=== PATIENT | male | born 1940 | race Caucasian/White ===

== ENCOUNTER 2016-05-04 08:07 | Day surgery (SDC) | payer MEDICARE ==
[~2016-05-04] VITALS: Ht 167.6 cm; Wt 75.0 kg
[~2016-05-04 08:07] MED LIST: ASPI-973 PO; CHOL10008 PO; FEXO1TAB4 PO; MULT-1073 PO; OMEP20CA11 PO; PYR50 PO; Sodium Chloride LOK Flush 10 mL Syringe IV PRN; TAMS0.4C29 PO; TIMO5DRO5 OP; TRAV5DRO OP; fentaNYL-PF 50 mCg/mL 2 mL Inj IVPUSH PRN
[2016-05-04 08:23] VITALS: BP 137/85; PULSE 78; RESP 16; O2SAT 100
[2016-05-04] MEDS ORDERED: LACT1CAP73 PO (08:27)
[2016-05-04] MEDS ORDERED: GABA-502 PO (08:27)
[2016-05-04] MEDS: 0.9% Sodium Chloride 1,000 ML IV SCH ×3 (08:36→09:10)
[2016-05-04 09:17] VITALS: BP 110/65; PULSE 67; RESP 16; O2SAT 93
[2016-05-04 09:26] VITALS: BP 101/62; PULSE 54; RESP 14; O2SAT 96
[2016-05-04 09:31] VITALS: BP 114/69; PULSE 73; RESP 14; O2SAT 97
--- NOTE | 2016-05-04 09:59 | ENDO ---
[address] [address] ENDOSCOPY PROCEDURE PATIENT: NAHOMY BUSTILLO : 1940 MR#: [id number] ADMIT: 05/04/2016 JOB ID: [id number] DATE OF SERVICE: 05/04/2016 TYPE OF OPERATION: 1. Esophagogastroduodenoscopy with biopsy. 2. Colonoscopy with biopsy. PREOPERATIVE DIAGNOSIS(ES): 1. Gastroesophageal reflux disease. 2. History of tubular adenoma polyps. POSTOPERATIVE DIAGNOSIS(ES): 1. Multiple gastric polyps. 2. Mild nonerosive gastritis. 3. Two ascending colon polyps, both measuring approximately 4 mm in diameter, removed by cold biopsy forceps. 4. Severe sigmoid diverticulosis. 5. Small internal hemorrhoids. ANESTHESIA: Fentanyl 150 mcg and Versed 5 mg IV administered. COMPLICATIONS: None. BLOOD LOSS: Minimal. DESCRIPTION OF PROCEDURE: After risks and benefits were explained to the patient, informed consent was obtained. After anesthesia administered, upper endoscope was then inserted into the mouth, intubating into the esophagus, stomach and second portion, and mucosa carefully examined. After procedure was done, the scope withdrawn and procedure terminated. A colonoscope was then inserted from rectum to cecum. Mucosa carefully examined. Prep of the patient was fair. After the procedure was done, the scope withdrawn and procedure terminated. FINDINGS: Upon inspection of the esophagus, the esophagus was normal without masses, ulcers, or lesions. Z-line located 40 cm from incisors. Upon entering stomach, there was mild nonerosive gastritis that was seen. There were no masses or ulcers seen. There was multiple gastric polyps seen in the body. Retroflexion was normal. Duodenal bulb, first and second portions were normal. Biopsies taken of the antrum and body of the stomach, and gastric polyp in distal esophagus. Upon inspection of the anus, no masses, hemorrhoids, ulcers, or fissures that were seen. Throughout the entire examination, there are two polyps seen in the ascending colon, measuring 4 mm in diameter, removed by cold biopsy forceps. There was also severe sigmoid diverticulosis. No other masses or polyps were seen. Retroflexion showed small internal hemorrhoids. IMPRESSION: 1. Small internal hemorrhoids. 2. Severe sigmoid diverticulosis. 3. Two polyps in the ascending colon measuring 4 mm in diameter, removed by cold biopsy forceps. 4. Multiple gastric polyps. 5. Mild nonerosive gastritis. RECOMMENDATION: Await pathology results. Repeat colonoscopy in five years.
--- NOTE | 2016-05-07 15:27 | PATH ---
SURGICAL PATHOLOGY Attending Physician:James Burns MD CASE STATUS: Signed Out PATIENT NAME: NAHOMY BUSTILLO PID: [id number] : 1940 DATE COLLECTED:05/04/2016 16:14 SPECIMEN: 1: Stomach, Antrum, Biopsy 2: Gastric, Biopsy 3: Stomach, Polyp, Biopsy 4: Esophagus, Biopsy 5: Colon, Biopsy CLINICAL HISTORY: 1).ANTRUM BIOPSY 2).GASTRIC BODY BIOPSY 3).GASTRIC POLYP BIOPSY 4).DISTAL ESOPHAGUS BIOPSY 5).ASCENDING COLON POLYPS X2 FINAL DIAGNOSIS: 1.ANTRUM BIOPSY: ANTRAL MUCOSA WITH NO DIAGNOSTIC ALTERATIONS. Negative for Helicobacter organisms. Negative for intestinal metaplasia. Negative for dysplasia and malignancy. 2.GASTRIC BODY BIOPSY: BODY-TYPE MUCOSA WITH NO DIAGNOSTIC ALTERATIONS. Negative for Helicobacter organisms. Negative for intestinal metaplasia. Negative for dysplasia and malignancy. 3. GASTRIC POLYP BIOPSY: FUNDIC GLAND POLYP. Negative for intestinal metaplasia. Negative for dysplasia and malignancy. 4.DISTAL ESOPHAGUS BIOPSY: SQUAMOCOLUMNAR MUCOSA WITH NO DIAGNOSTIC ALTERATIONS. Negative for intestinal/Lynn' s metaplasia. Negative for dysplasia and malignancy. 5.ASCENDING COLON POLYPS: TUBULAR ADENOMAS. ICD10 CODE K31.7 D12.2 GROSS DESCRIPTION: The specimen is received in five formalin filled containers labeled with the patient's name. 1). The specimen is sublabeled "antrum" and consists of 2 portions of tissue which aggregate to 0.4 x 0.3 x 0.2 CM. The specimen is entirely submitted in cassette 1A. 2). The specimen is sublabeled "gastric body" and consists of 2 portions of tissue which aggregate to 0.4 x 0.3 x 0.2 CM. The specimen is entirely submitted in cassette 2A. 3). The specimen is sublabeled "gastric polyp" and consists of a 0.3 x 0.3 x 0.2 CM portion of tissue which is entirely submitted in cassette 3A. 4). The specimen is sublabeled "distal esophagus" and consists of 2 portions of tissue which aggregate to 0.3 x 0.3 x 0.2 CM. The specimen is entirely submitted in cassette 4A. 5). The specimen is sublabeled "ascending colon polyps" and consists of 5 portions of tissue which aggregate to 0.3-0.3 x 0.3 CM. The specimen is entirely submitted in cassette 5A. 05/04/2016 DAC MICRO DESCRIPTION: See diagnosis. ICD-9 CODES: CPT CODES: 1: 39411 2: 26001 3: 65801 4: 27304 5: 80194 Electronically Signed Out Ignacia Crews MD [facility] [address], [place] [address] Technical component performed at [facility], [address], [place], [address]
== END 2016-05-04 23:59 | disposition home or self-care (01) ==
LOC: END 08:07
PROVIDERS: ATTEND Internal Medicine Gastroenterology
DX: Z12.11 Encounter for screening for malignant neoplasm of colon (principal); D12.2 Benign neoplasm of ascending colon; K57.30 Diverticulosis of large intestine without perforation or abscess without bleeding; K64.8 Other hemorrhoids; Z86.010 Personal history of colon polyps; K31.7 Polyp of stomach and duodenum; K29.50 Unspecified chronic gastritis without bleeding; K21.9 Gastro-esophageal reflux disease without esophagitis; N40.1 Benign prostatic hyperplasia with lower urinary tract symptoms; F10.99 Alcohol use, unspecified with unspecified alcohol-induced disorder; Z79.82 Long term (current) use of aspirin
CPT/HCPCS: 43239; 45380; 99153; G0500; J2250; J3010; J7030